=== PATIENT | male | born 1990 ===

== ENCOUNTER 2016-05-30 09:36 | Emergency (ER) | payer BC, OTHER ==
[2016-05-30 09:43] VITALS: BMI 37.1
[2016-05-30 09:45] VITALS: BP 121/69; PULSE 53; RESP 19; TEMP 97.7; O2SAT 98
[2016-05-30] MEDS ORDERED: Albuterol-Ipratrop 3 mg / 0.5 (3 ml) UD INH STA (10:33)
--- NOTE | 2016-05-30 10:56 | ED PDOC ---
HPI: General Adult Time Seen by Provider: 05/30/16 10:20 Chief Complaint (Nursing): Cough, Cold, Congestion Chief Complaint (Provider): cough/uri History Per: Patient (25 y/o male here for evaluation of productive cough associated with abdominal pain/dizziness. Denies any fevers/chills. Denies any vomiting/diarrhea. States abdominal pain hurts with coughing and movement. Notes dizziness worse with sitting up.) Past Medical History Reviewed: Historical Data, Nursing Documentation, Vital Signs Vital Signs: Last Vital Signs Temp 97.7 F 05/30/16 09:43 Pulse 53 L 05/30/16 09:43 Resp 19 05/30/16 09:43 BP 121/69 05/30/16 09:43 Pulse Ox 98 05/30/16 13:50 - Family History Family History: States: Unknown Family Hx - Home Medications Home Medications: Ambulatory Orders Medication Instructions Recorded Amoxicillin/Clavulanate Pota 1 tab PO BID #20 tab 05/05/14 [Augmentin 875 mg-125 mg] Albuterol HFA [Ventolin HFA 90 2 puff IH [id number] PRN #1 inhaler 05/30/16 mcg/actuation (8 g)] Azithromycin [Zithromax] 1 tab PO DAILY #6 tab 05/30/16 Famotidine [Pepcid] 1 tab PO BID PRN #10 tab 05/30/16 Pseudoephedrine [Sudafed Tab] 1 tab PO Q6 PRN #15 tab 05/30/16 predniSONE [predniSONE Tab] 3 tab PO DAILY #12 tab 05/30/16 - Allergies Allergies/Adverse Reactions: Allergies Allergy/AdvReac Type Severity Reaction Status Date / Time No Known Allergies Allergy Verified 05/30/16 09:52 Review of Systems ROS Statement: Except As Marked, All Systems Reviewed And Found Negative Respiratory: Positive for: Cough Gastrointestinal: Positive for: Abdominal Pain Neurological: Positive for: Dizziness Physical Exam - Reviewed Nursing Documentation Reviewed: Yes Vital Signs Reviewed: Yes - Physical Exam Appears: Positive for: Well, Non-toxic, No Acute Distress Head Exam: Positive for: ATRAUMATIC, NORMAL INSPECTION, NORMOCEPHALIC Skin: Positive for: Normal Color, Warm, DRY Eye Exam: Positive for: EOMI, Normal appearance, PERRL ENT: Positive for: Normal ENT Inspection Neck: Positive for: Normal, Painless ROM Cardiovascular/Chest: Positive for: Regular Rate, Rhythm Respiratory: Positive for: Normal Breath Sounds, Wheezing Gastrointestinal/Abdominal: Positive for: Normal Exam, Bowel Sounds, Soft, Tenderness (mild epigastric tenderness noted.) Back: Positive for: Normal Inspection Extremity: Positive for: Normal ROM Neurologic/Psych: Positive for: Alert, Oriented - Laboratory Results Result Diagrams: 05/30/16 12:00 05/30/16 12:00 - ECG O2 Sat by Pulse Oximetry: 98 - Progress ED Course And Treament: CXR: no acute infiltrate Prednisone 60 mg x 1 dose Duoneb x 1 dose MAALOX 30 ML X 1 DOSE ekg: SINUS BRADYCARIA FIRST DEGREE AV BLOCK NS 1 LITER WITH OPEN TSH NOTED ELEVATED. D/W PATIENT. LUNGS CTAB AT THIS TIME (13:50) Disposition - Clinical Impression Clinical Impression: Bradycardia, Bronchitis - Patient ED Disposition Is Patient to be Admitted: No - Disposition Referrals: [facility] [Outside] Disposition: Routine/Home Disposition Time: 13:54 Condition: FAIR Prescriptions: Albuterol HFA [Ventolin HFA 90 mcg/actuation (8 g)] 2 puff IH [id number] PRN #1 inhaler PRN Reason: Cough Famotidine [Pepcid] 1 tab PO BID PRN #10 tab PRN Reason: Pain, Mild (1-3) Pseudoephedrine [Sudafed Tab] 1 tab PO Q6 PRN #15 tab PRN Reason: Nasal Congestion Azithromycin [Zithromax] 1 tab PO DAILY #6 tab predniSONE [predniSONE Tab] 3 tab PO DAILY #12 tab Instructions: How to Stop Smoking (ED), Acute Bronchitis (ED), Bradycardia (GEN ) Forms: [facility] ED School/Work Excuse
[2016-05-30] MEDS ORDERED: Alum-Mag Hydrox-Simethicone Susp (30 mL) PO ONE (10:59)
[2016-05-30] MEDS ORDERED: Alum-Mag Hydrox-Simethicone Susp (30 mL) ONE (11:42)
[2016-05-30] MEDS ORDERED: Albuterol-Ipratrop 3 mg / 0.5 (3 ml) UD ONE (11:44)
[2016-05-30] MEDS ORDERED: Sodium Chloride 0.9% 1,000 ML IV STA (11:49)
--- NOTE | 2016-05-30 11:54 | RAD ---
HISTORY: r/o pneumonia COMPARISON: No prior. TECHNIQUE: Chest PA and lateral FINDINGS: LUNGS: The lungs are well inflated and clear. PLEURA: No significant pleural effusion identified. No pneumothorax apparent. CARDIOVASCULAR: Normal. OSSEOUS STRUCTURES: No significant abnormalities. VISUALIZED UPPER ABDOMEN: Normal. OTHER FINDINGS: None. IMPRESSION: No active pulmonary disease.
[2016-05-30 12:48] LABS: BASO # 0.1 K/uL (0.0-0.2); BASO % 1.3 % (0.0-2.0); EOS # 0.6 K/uL (0.0-0.7); EOS % 7.1 % (0.0-4.0); HEMATOCRIT 47.3 % (35.0-51.0); LYMPH % 45.5 % (20.0-40.0); MEAN CELL VOLUME 90.6 fl (80.0-94.0); MEAN CORPUSCULAR HEMOGLOBIN 31.5 pg (27.0-31.0); MEAN CORPUSCULAR HGB CONC 34.8 g/dL (33.0-37.0); MEAN PLATELET VOLUME 9.2 fl (7.2-11.7); MONO # 0.5 K/uL (0.0-0.8); NEUT # 3.5 K/uL (1.8-7.0); NEUT % 40.1 % (50.0-75.0); NRBC % 0.7 % (0.0-0.0); RED CELL DISTRIBUTION WIDTH 13.5 % (11.5-14.5); WHITE BLOOD COUNT 8.8 K/uL (4.8-10.8)
[2016-05-30 13:06] LABS: ALB/GLOB RATIO 1.2 (1.0-2.1); ALKALINE PHOSPHATASE 92 U/L (38-126); ALT/SGPT 55 U/L (21-72); AST/SGOT 63 U/L (17-59); BLOOD UREA NITROGEN 14 mg/dl (9-20); CALCIUM 9.4 mg/dL (8.4-10.2); CARBON DIOXIDE 26 mmol/L (22-30); CHLORIDE 101 mmol/L (98-107); GFR AFRICAN-AMERICAN > 60; GLUCOSE,RANDOM 103 mg/dL (75-110); LIPASE 121 U/L (23-300); POTASSIUM 4.5 MMOL/L (3.6-5.0); SODIUM 142 mmol/l (132-148); TOTAL PROTEIN 8.1 G/DL (6.3-8.2)
[2016-05-30 13:36] LABS: THYROID STIMULATING HORMONE 5.69 mIU/ML (0.46-4.68)
--- NOTE | 2016-05-30 17:11 | CARD ---
APPROVED REPORT EKG Measurement Heart [id number] IL [id number] [id number] <Conclusion> Sinus bradycardia with sinus arrhythmia with 1st degree AV block Otherwise normal ECG
== END 2016-05-30 14:15 | disposition home or self-care (01) ==
LOC: H.ER 09:36
DX: R00.1 Bradycardia, unspecified (principal); J40 Bronchitis, not specified as acute or chronic; I44.0 Atrioventricular block, first degree
CPT/HCPCS: 71020; 80053; 83690; 83735; 84443; 85025; 93005; 94640; 99282; J7040

== ENCOUNTER 2017-10-24 22:47 | Emergency (ER) | payer BC ==
[2017-10-24 22:47] VITALS: BMI 37.1
[2017-10-24 23:07] VITALS: TEMP 98.7
[2017-10-25] MEDS ORDERED: PROPARACAINE/FLUORESCEIN SOD 100 DROP/5 ML BOTTLE OD STA (01:17)
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
[2017-10-25] MEDS ORDERED: PROPARACAINE/FLUORESCEIN SOD 100 DROP/5 ML BOTTLE ONE (01:30)
[2017-10-25 03:17] VITALS: BP 140/60; PULSE 80; RESP 18; O2SAT 100
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
== END 2017-10-25 03:20 | disposition home or self-care (01) ==
LOC: H.ER 22:47
DX: S05.11XA Contusion of eyeball and orbital tissues, right eye, initial encounter (principal); S02.2XXA Fracture of nasal bones, initial encounter for closed fracture; H11.31 Conjunctival hemorrhage, right eye; Y04.0XXA Assault by unarmed brawl or fight, initial encounter; Y92.89 Other specified places as the place of occurrence of the external cause

== ENCOUNTER 2018-07-13 19:25 | Emergency (ER) | payer BC ==
[2018-07-13 19:25] VITALS: BMI 37.1
--- NOTE | 2018-07-13 20:16 | ED PDOC ---
Lower Extremity Pain/Injury Time Seen by Provider: 07/13/18 19:50 Chief Complaint (Nursing): Lower Extremity Problem/Injury Chief Complaint (Provider): Left great toe pain History Per: Patient History/Exam Limitations: no limitations Onset/Duration Of Symptoms: Hrs Current Symptoms Are (Timing): Still Present Additional Complaint(s): 27 year old male with no medical history presents presents to the ED with acute left great toe pain since this morning. Patient reports the pain woke him up from sleep. He tried to soak his toe in warm water and used a salve with no i mprovement. He denies any oral medication prior to arrival. Otherwise, patient denies fever, chills or trauma. Past Medical History Reviewed: Historical Data, Nursing Documentation, Vital Signs Vital Signs: Last Vital Signs Temp 99.9 F H 07/13/18 19:35 Pulse 73 07/13/18 19:35 Resp 16 07/13/18 19:35 BP 128/72 07/13/18 19:35 Pulse Ox 97 07/13/18 19:35 Primary Care Provider: Doctor,Conversion - Medical History PMH: No Chronic Diseases - Family History Family History: States: Unknown Family Hx - Immunization History Hx Tetanus Toxoid Vaccination: No Hx Influenza Vaccination: No Hx Pneumococcal Vaccination: No - Home Medications Home Medications: Ambulatory Orders Medication Instructions Recorded Amoxicillin/Clavulanate Pota 1 tab PO BID #20 tab 05/05/14 [Augmentin 875 mg-125 mg] Albuterol HFA [Ventolin HFA 90 2 puff IH [id number] PRN #1 inhaler 05/30/16 mcg/actuation (8 g)] Azithromycin [Zithromax] 1 tab PO DAILY #6 tab 05/30/16 Famotidine [Pepcid] 1 tab PO BID PRN #10 tab 05/30/16 Pseudoephedrine [Sudafed Tab] 1 tab PO Q6 PRN #15 tab 05/30/16 predniSONE [predniSONE Tab] 3 tab PO DAILY #12 tab 05/30/16 Naproxen [Naprosyn] 500 mg PO Q12 PRN #20 tablet 10/25/17 Indomethacin 50 mg PO Q8 PRN 7 Days capsule 07/13/18 - Allergies Allergies/Adverse Reactions: Allergies Allergy/AdvReac Type Severity Reaction Status Date / Time No Known Allergies Allergy Verified 07/13/18 19:39 Review of Systems ROS Statement: Except As Marked, All Systems Reviewed And Found Negative Constitutional: Negative for: Fever, Chills, Other (trauma ) Musculoskeletal: Positive for: Foot Pain (left great toe pain ) Physical Exam - Reviewed Nursing Documentation Reviewed: Yes Vital Signs Reviewed: Yes - Physical Exam Appears: Positive for: Uncomfortable Extremity: Positive for: Other (normal extension and flexion at other phalanges and ankle. No tenderness to palpation on tarsal bones ). Negative for: Normal ROM (mildly decreased ROM of extension and flexion at MTP ), Deformity Neurological/Psych: Positive for: Awake, Alert, Normal Tone, Oriented (x3) - ECG O2 Sat by Pulse Oximetry: 97 (RA) Pulse Ox Interpretation: Normal - Radiology X-Ray: Interpreted by Me X-Ray Interpretation: No Acute Disease Medical Decision Making Medical Decision Making: Time: 19:59 Impression: left greater toe pain Plan: Indomethacin 50mg PO Left greater toe routine [RAD] 21:19 X-ray presents no acute abnormalities, as read by ROYCE Upon provider evaluation patient is medically stable, and requires no further treatment in the ED at this time. Patient will be discharged home. Counseling was provided and all questions were answered regarding diagnosis and need for follow up with PMD. There is agreement to discharge plan. Return if symptoms persist or worsen. Scribe Attestation: Documented by Curtis Casillas, acting as a scribe for Patty Castro PA-C. Provider Scribe Attestation: All medical record entries made by the Scribe were at my direction and personally dictated by me. I have reviewed the chart and agree that the record accurately reflects my personal performance of the history, physical exam, medical decision making, and the department course for this patient. I have also personally directed, reviewed, and agree with the discharge instructions and disposition. Disposition - Clinical Impression Clinical Impression: Gout attack - Patient ED Disposition Is Patient to be Admitted: No - Disposition Referrals: Krzysztof Stevens MD [Staff Provider] - Disposition: Routine/Home Disposition Time: 21:19 Condition: STABLE Additional Instructions: Follow up with primary care doctor for further correction treatment of gout. Take Indomethacin as needed up to three times daily for pain. You can take Ibuprofen 1000mg up to every 6hours in between Indomethacin doses if needed. Return to ER if you develop fevers. Prescriptions: Indomethacin 50 mg PO Q8 PRN 7 Days capsule PRN Reason: Pain, Moderate (4-7) Instructions: Gout (DC) Forms: [facility] (Belizean) Print Language: NEPALI
[2018-07-13 21:49] VITALS: BP 132/88; PULSE 70; RESP 18; TEMP 98.9; O2SAT 99
--- NOTE | 2018-07-14 08:38 | RAD ---
PROCEDURE: Radiographs of the left great toe. TECHNIQUE:: AP radiograph of the left foot, with oblique and lateral view of the left great toe. 3 view obtained. COMPARISON: None. FINDINGS: BONES: No acute fracture or destructive bony lesion identified. JOINTS: Normal. SOFT TISSUES: Normal. OTHER FINDINGS: None. IMPRESSION: Unremarkable left great toe radiographs.
== END 2018-07-13 21:42 | disposition home or self-care (01) ==
LOC: H.ER 19:25
DX: M10.9 Gout, unspecified (principal)